=== PATIENT | male | born 1945 | race African-American/Black ===

== ENCOUNTER 2017-11-08 23:25 | Inpatient (IN) | payer MEDICARE ==
[2017-11-08 23:52] VITALS: BP 130/75
[2017-11-09] MEDS ORDERED: CEPHALEXIN PO SCH (04:00)
[2017-11-09] MEDS ORDERED: Non-Formulary Item 1 EA (Carvedilol [Carvedilol] 25 MG) PO SCH (09:00)
[2017-11-09] MEDS ORDERED: CLONIDINE HCL PO SCH (09:00)
--- NOTE | 2017-11-11 01:19 | Psychosocial Evaluation ---
DATE OF SERVICE: 11/08/2017 PSYCHIATRIC INITIAL EVALUATION AND MENTAL STATUS EXAM PATIENT'S AGE: 72-year-old. SEX: Male. PHYSICIAN: Dr. Callahan. CHIEF COMPLAINT: Agitation and irritable mood. HISTORY OF PRESENT ILLNESS: The patient is a 72-year-old who was transferred from [facility] because of aggressive behavior and threatening officers and staff. The patient has been aggressive towards staff in the facility where he lives and also in the Emergency Room was threatening staff and threated officers and was not able to follow any directions. The patient also has been resisting care. The patient also in the Emergency Room was uncooperative and refuses to sign papers or to cooperate with staff or to give them any information. The patient has history of bipolar disorder and has been easily agitated and in irritable and angry mood. The patient was placed on a 5150 hold in the Emergency Room for grave disability since he has not been able to give any information and has not been able to provide any safe plan for self-care. PAST PSYCHIATRIC HISTORY: The patient has history of what seems to be bipolar disorder. PAST MEDICAL HISTORY: The patient has history of hypertension. SOCIAL HISTORY: The patient lives in a alf. The patient denies any alcohol or street drug use. ALLERGIES: LITHIUM. MENTAL STATUS EXAMINATION: The patient appears older than stated age. Irritable mood. Agitated. Anxious. Irritable and angry mood. Uncooperative. Thought processes are with poverty of speech. The patient did not answer questions regarding hallucinations or delusions or regarding suicide or homicide but he is agitated and aggressive. The patient denies any intention to harm himself or others, but he is aggressive and threatening others. The patient is alert and unable to assess memory or orientation at this time because the patient is uncooperative. Poor insight and poor judgment. ASSESSMENT: PRIMARY DIAGNOSIS: Bipolar disorder, manic episode, with psychotic features. TREATMENT PLAN: Continue to monitor his behavior and his condition closely. Also, we will start the patient on Seroquel who will adjust the dose. ESTIMATED LENGTH OF STAY: 5-7 days. THE PATIENT'S STRENGTHS AND WEAKNESSES: The patient's strength is not clear at this time. Weaknesses are his poor judgment and his anger and threatening the staff and uncooperative. AFTER DISCHARGE PLAN: The patient will return to his placement and outpatient treatment and followup will continue as an outpatient. CRITERIA FOR DISCHARGE: The patient will not be agitated or psychotic and have better impulse control and we will stabilize psychotropic medications and establish outpatient treatment plans. [facility]# [id number]
--- NOTE | 2017-11-11 02:07 | Progress Notes ---
DATE: SUBJECTIVE: Chart reviewed and the patient interviewed. Also discussed the patient's condition with the staff and reviewed records and labs. The patient is still confused and he is still in angry and in irritable mood. The patient also is still having disorganized thoughts and he is unable to carry on any coherent conversation. The patient also is still restless and he is still easily agitated. Also, still have disorganized thoughts and unable to carry on any coherent conversation. The patient also has foul odor and refused to take shower and is in angry mood. Also, difficulty following directions. ASSESSMENT: The patient is confused and is agitated. TREATMENT PLAN: Continue to monitor his behavior and his condition closely. Also, we will start the patient on Seroquel 25 mg twice a day and we will adjust the dose and follow up with discharge plans and with behavioral modifications. JOB# [id number]
--- NOTE | 2017-11-11 10:04 | Progress Notes ---
DATE: 11/11/2017 SUBJECTIVE: Chart reviewed and the patient interviewed. Also discussed the patient's condition with the staff and reviewed the records and labs. The patient continued to be extremely delusional and angry and is still extremely suspicious and paranoid. The patient also is still easily agitated. The patient also is disheveled and personal hygiene is poor. He also is angry and he needs lots of redirections, was difficult to redirect him. On the other hand, the patient started to take his medications. The patient has still poor hygiene and he is still unable to cooperate with the staff in regard to his hygiene. ASSESSMENT: The patient is still psychotic and is still agitated. TREATMENT PLAN: Continue to monitor his behavior and his condition closely. Also, continue to work on his irritable mood and poor hygiene. Also, continue to adjust psychotropic medications and follow up closely. JOB# [id number]
--- NOTE | 2017-11-11 15:31 | History & Physical ---
ADMIT DATE: 11/09/2017 ADMITTING PHYSICIAN: Dr. Callahan. REASON FOR ADMISSION: Psychiatric disorder. HISTORY OF PRESENT ILLNESS: This 72-year-old male with history of hypertension admitted to [facility] for underlying psychiatric illness by Dr. Callahna. Dr. Callahan requested a medical H and P on this patient. During my evaluation, the patient seems very agitated and very confused, unable to communicate well. Most of the history obtained through available medical record. PAST MEDICAL HISTORY: Hypertension per record. PAST SURGICAL HISTORY: None reported. SOCIAL HISTORY: Lives at nursing facility. Negative for alcohol, tobacco, or street drug use. CURRENT MEDICATIONS: Per medical reconciliation reviewed. ALLERGIES: Allergic to LITHIUM. REVIEW OF SYSTEMS: Difficult to obtain due to the patient's underlying confusions. PHYSICAL EXAMINATION: VITAL SIGNS: Temperature 97.8, pulse 71, respiration 19, blood pressure 157/71. HEENT: Unremarkable. HEART: S1, S2 normal. LUNGS: Clear to auscultation. ABDOMEN: Soft, nontender, no guarding or rigidity. NEUROLOGIC: The patient is awake, but confused, grossly nonfocal. EXTREMITIES: Mild edema noted. LABORATORY DATA: No lab data is available. ASSESSMENT: 1. Hypertension. 2. Confusion. 3. Psych disorder. 4. Dementia. PLAN: The patient will be continued on Coreg and Norvasc. Monitor blood pressures. Continue Aricept. Psych management per psychiatrist. Fall precaution, aspiration precaution will be given. The patient is medically stable to proceed to [facility]. Thank you Dr. Callahan for allowing us to participate in the care of this patient. [facility]# [id number]
--- NOTE | 2017-11-13 22:43 | Progress Notes ---
DATE: 11/12/2017 DATE OF SERVICE: 11/12/2017. SUBJECTIVE: Chart reviewed and the patient interviewed. Also discussed the patient's condition with the staff and reviewed records and labs. The patient slept slightly better yesterday since he did take his medications. The patient also did take a shower. He is still wearing his dirty clothes, still foul odor and poor hygiene. The patient also is still easily agitated and easily irritable. Also, focused on smoking. The patient also had difficulty following the staff directions and he still gets agitated and resisting care when staff tried to redirect him. Otherwise, the patient started to comply with taking his medications and seems to be slightly easier to redirect him. ASSESSMENT: The patient seems to be slightly less agitated and less irritable. TREATMENT PLAN: Continue to monitor his behavior and his condition closely. Also, continue to work on his poor impulse control and his agitation and his irritability and continue to follow up closely. JOB# [id number]
--- NOTE | 2017-11-14 00:37 | Progress Notes ---
DATE: 11/13/2017 SUBJECTIVE: A 72-year-old male currently in the hospital, aggressive behaviors, threatening officers and staff, aggressive towards staff. Dr. Callahan seeing the patient over the past few days, noted that he is delusional, angry, suspicious, paranoid, very poor personal hygiene. Staff noting he remains impulsive, unpredictable, slept fairly well. Poorly oriented at times. Noted to be anxious, depressed. Medications were noted including dosages and frequencies. He is refusing ADLs, refusing to shower for example unclear as to why. ASSESSMENT: The patient remains symptomatic, impulsive, unpredictable, not safe for a lower level of care, ongoing psychotic symptoms. PLAN: We will continue to monitor, adjust and . JOB# [id number]
--- NOTE | 2017-11-14 17:23 | Progress Notes ---
DATE: 11/14/2017 SUBJECTIVE: I met with the patient in the hospital, aggressive behaviors, had been threatening officers, threatening staff. The patient noted to be angry, suspicious. On [id number], the patient, angry, does not want to talk to me. The patient seems to be fully oriented, anxious, internally preoccupied, highly impulsive, unpredictable, noted to be mostly withdrawn. Staff noting he remains suspicious, depressed, does not really know why he is here. Does not know what is going on for example, does not know the year, the month. Medications were noted including doses and frequencies. ASSESSMENT: The patient remains symptomatic, at times focused on smoking, confused, disoriented, impulsive, unpredictable, noted history of dementia, currently on Depakote, Seroquel. We will continue to monitor. Given his ongoing symptoms, he remains an acute safety risk. JOB# [id number]
--- NOTE | 2017-11-15 17:27 | General Progress Note ---
Subjective - Review of Systems Service Date: 11/15/17 Subjective: Patient seen and examined nursing staff reported that patient has been refusing his BP meds Objective - Physical Exam Vitals and I&O: Vital Signs Temp 97.8 F 11/08/17 23:50 Pulse 76 11/14/17 17:10 Resp 19 11/08/17 23:50 BP 126/78 11/14/17 17:10 Pulse Ox 97 11/08/17 23:50 Intake & Output 11/14/17 11/15/17 11/15/17 18:59 06:59 18:59 Intake Total 1200 300 Balance 1200 300 Intake: Oral 1200 300 Other: # Voids 3 1 # Bowel Movements 1 0 Active Medications: Current Medications Amlodipine Besylate (Norvasc) 10 mg PO DAILY [facility] Stop: 01/12/18 08:59 Last Admin: 11/15/17 08:09 Dose: Not Given Carvedilol (Coreg) 25 mg PO BID [facility] Stop: 01/08/18 08:59 Last Admin: 11/15/17 08:09 Dose: Not Given Divalproex Sodium (Depakote Dr) 125 mg PO BID [facility]; Protocol Stop: 01/08/18 08:59 Last Admin: 11/15/17 10:05 Dose: 125 mg Docusate Sodium (Colace) 100 mg PO BID [facility] Stop: 01/08/18 08:59 Last Admin: 11/15/17 10:05 Dose: 100 mg Donepezil HCl (Aricept) 10 mg PO HS [facility] Stop: 01/08/18 20:59 Last Admin: 11/14/17 21:23 Dose: 10 mg Lorazepam (Ativan) 0.5 mg PO Q4HR PRN; Protocol PRN Reason: Anxiety Stop: 12/09/17 01:47 Last Admin: 11/12/17 09:51 Dose: 0.5 mg Quetiapine Fumarate (Seroquel) 50 mg PO BID [facility]; Protocol Stop: 01/11/18 12:44 Last Admin: 11/15/17 10:04 Dose: 50 mg Thiamine HCl (Vitamin B1) 100 mg PO DAILY [facility] Stop: 01/08/18 08:59 Last Admin: 11/15/17 10:05 Dose: 100 mg Trazodone HCl (Desyrel) 50 mg PO HS PRN; Protocol PRN Reason: Insomnia Stop: 01/08/18 03:58 Triamterene/HCTZ (Dyazide) 1 cap PO DAILY [place] Stop: 01/08/18 08:59 Last Admin: 11/15/17 10:04 Dose: 1 cap Zolpidem Tartrate (Ambien) 5 mg PO HS PRN PRN Reason: Insomnia Stop: 01/08/18 01:47 Last Admin: 11/14/17 21:23 Dose: 5 mg Cardiovascular: Regular rate Lungs: Clear to auscultation Assessment/Plan - Assessment Assessment: HTN Non compliance Mental health disorder - Plan Plan: Monitor BP Medication compliance advised Psych management per psychiatrist Nutritional Asmnt/Malnutr-PDOC - Dietary Evaluation Malnutrition Findings (Please click <Entered> for more info): Nutritional Asmnt/Malnutrition Start: 11/11/17 17: 21 Text: Status: Complete Freq: Protocol: Document 11/11/17 17:21 LCMILLIEG (Rec: 11/11/17 17:24 [id number]) Nutritional Asmnt/Malnutrition Patient General Information Nutritional Screening Moderate Risk Diagnosis psychosis Pertinent Medical Hx/Surgical Hx HTN Subjective Information Per EMR, PO intake 100% on regular diet. Current Diet Order/ Nutrition Support regular Pertinent Medications colace, seroquel, vit B1 Pertinent Labs no labs Nutritional Hx/Data Height 1.73 m Height (Calculated Centimeters) 172.7 Current Weight (lbs) 72.575 kg Weight (Calculated Kilograms) 72.6 Weight (Calculated Grams) 44558.8 [place] Body Weight 154 Body Mass Index (BMI) 24.3 Weight Status Approriate GI Symptoms GI Symptoms None Last BM none Difficult in: None Skin Integrity/Comment: david 16 Current %PO Good (75-100%) Estimated Nutritional Goals BEE in Kcals: Using Current wt Calories/Kcals/Kg 25-30 Kcals Calculated 7836-9496 Protein: Using Current wt Protein g/k Protein Calculated 73 Fluid: ml 1825-2190ml (1ml/kcal) Nutritional Problem No current Nutrition Prob Problem N/A Malnutrition Alert Is there a minimum of two criteria No selected? Query Text:Check all the applicable criteria. A minimum of two criteria are recommended for diagnosis of either severe or non-severe malnutrition. Malnutrition Related to Morbid Obesity Malnutrition related to morbid obesity No Intervention/Recommendation Comments 1. Continue with regular diet as ordered. 2. Monitor PO intake, wt, labs and skin integrity 3. F/U as low risk in 7 days, 11/18 Expected Outcomes/Goals Expected Outcomes/Goals 1. PO intake to meet at least 75% of nutritional needs. 2. Wt stability, skin to remain intact, labs to approach WNL.
--- NOTE | 2017-11-15 21:52 | Progress Notes ---
DATE: 11/15/[address] Callahan. Case was discussed with staff of the patient, reviewed records. This is a 72-year-old male who was admitted on 11/08/2017 because of irritability and agitation from [facility] because of aggressive behavior, threatening officers and staff, aggressive towards staff, unable to participate in meaningful conversation or make safe plan for his self-care. He was put on a hold for gait disability, unable to give any information with a history, which seem to be like bipolar disorder. The patient continues to be unable to give information. Continues to be confused. He is on Aricept 10 mg at bedtime, Seroquel 50 mg twice a day, and ____ 100 mg daily. Continues to be unpredictable, impulsive, and needing redirection. Continues to have poor insight. Continues to be at risk for discharge because of his behavior and we will continue with the patient in group therapy, milieu therapy, and adjust the medications as needed. [facility]# [id number]
--- NOTE | 2017-11-16 22:28 | Progress Notes ---
DATE: 11/16/[address] Callahan. Case was discussed with staff of the patient, reviewed records. The patient continues to be irritable, continues to have poor insight, continues to be unable to make safe plan for self-care, confused, unpredictable, impulsive, needing redirection. Continues to be not ready to go to a lesser level of care because of his agitative behavior, confusion. No side effects to the medication. No sedation, no nausea, no extrapyramidal symptoms. We will continue the patient in group therapy, milieu therapy, and adjust the medications as needed. JOB# [id number]
--- NOTE | 2017-11-18 17:32 | Progress Notes ---
DATE: 11/17/2017 SUBJECTIVE: Chart reviewed and the patient interviewed. Also discussed the patient's condition with the staff and reviewed records and labs. The patient continued to be actively hallucinating and actively psychotic. He is going around, talking to himself. The patient also is still restless and he is still poor self-care. Also, he is at times uncooperative and refuses to get his vital signs taken earlier. Also, he seems to be in a depressed mood and also confused. Otherwise, the patient is compliant with taking his medications with no side effects of medications. ASSESSMENT: The patient is still psychotic and agitated. TREATMENT PLAN: Continue to monitor his behavior and his condition closely. Also, continue adjusting psychotropic medication and follow up closely. [facility]# [id number]
--- NOTE | 2017-11-19 01:25 | Progress Notes ---
DATE: 11/18/2017 SUBJECTIVE: Chart reviewed and the patient interviewed. Also, discussed the patient's condition with the staff and reviewed records and labs. The patient is still paranoid and is still anxious. The patient also is suspicious. He also is easily agitated and in irritable and angry mood. Otherwise, the patient is compliant with taking his medications with no side effects of medications. ASSESSMENT: The patient is still psychotic. TREATMENT PLAN: Continue monitoring his behavior and his condition closely. Also, continue adjusting psychotropic medications and followup. [facility]# [id number]
--- NOTE | 2017-11-20 11:28 | Progress Notes ---
DATE: SUBJECTIVE: Chart reviewed and the patient interviewed. Also discussed the patient's condition with the staff and reviewed records and labs. The patient still seems to be preoccupied and still paranoid. The patient also is still easily agitated. Also, is still restless and is still at times needs lots of redirections. The patient on the other hand is compliant with taking medications with no side effects of medications. ASSESSMENT: The patient is still paranoid and seems to be depressed. TREATMENT PLAN: Continue to monitor his behavior and his condition closely. Also, continue adjusting psychotropic medications and followup. JOB# [id number]
--- NOTE | 2017-11-20 20:06 | Progress Notes ---
DATE: 11/20/2017 PSYCHIATRIC PROGRESS NOTE Chart reviewed and the patient interviewed. Also discussed the patient's condition with the staff and reviewed records and labs. The patient is still mumbling and is still easily agitated. The patient also seems to be preoccupied. Also, is wandering around the unit and suspicious and paranoid and aggressive to others. Also, his thought processes are disorganized. He also needs lots of redirections. Otherwise, the patient is compliant with taking his medications with no side effects of medications. ASSESSMENT: The patient is still agitated and psychotic. TREATMENT PLAN: Continue to monitor his behavior and his condition closely. Also, continue adjusting psychotropic medications and work on behavioral modification. JOB# [id number]
--- NOTE | 2017-11-22 02:11 | Progress Notes ---
DATE: SUBJECTIVE: Chart reviewed and the patient interviewed. Also discussed the patient's condition with the staff and reviewed records and labs. The patient is still actively hallucinating and is preoccupied and talking to self. The patient also mumbles. He also is still paranoid. The patient also is still restless and disorganized thoughts. Otherwise, the patient is compliant with taking medications with no side effects of medications. ASSESSMENT: The patient is still agitated and is still psychotic and need close monitoring. TREATMENT PLAN: Continue to monitor his behavior and continue adjusting psychotropic medication and work on behavioral modification. JOB# [id number]
--- NOTE | 2017-11-22 16:16 | General Progress Note ---
Subjective - Review of Systems Service Date: 11/22/17 Subjective: Patient seen and examined doing better per nursing staff patient does take his meds now Objective - Physical Exam Vitals and I&O: Vital Signs Temp 0 F 11/22/17 06:52 Pulse 72 11/22/17 09:54 Resp 18 11/21/17 16:43 BP 147/82 11/22/17 09:54 Pulse Ox 99 11/21/17 16:43 Intake & Output 11/21/17 11/22/17 11/22/17 18:59 06:59 18:59 Intake Total 1200 180 Balance 1200 180 Intake: Oral 1200 180 Other: # Voids 3 2 # Bowel Movements 0 Active Medications: Current Medications Amlodipine Besylate (Norvasc) 10 mg PO DAILY [facility] Stop: 01/12/18 08:59 Last Admin: 11/22/17 08:54 Dose: 10 mg Carvedilol (Coreg) 25 mg PO BID [facility] Stop: 01/08/18 08:59 Last Admin: 11/22/17 08:55 Dose: 25 mg Divalproex Sodium (Depakote Dr) 125 mg PO BID [facility]; Protocol Stop: 01/08/18 08:59 Last Admin: 11/22/17 08:54 Dose: 125 mg Docusate Sodium (Colace) 100 mg PO BID [facility] Stop: 01/08/18 08:59 Last Admin: 11/22/17 08:55 Dose: 100 mg Donepezil HCl (Aricept) 10 mg PO HS [facility] Stop: 01/08/18 20:59 Last Admin: 11/21/17 21:02 Dose: 10 mg Lorazepam (Ativan) 0.5 mg PO Q4HR PRN; Protocol PRN Reason: Anxiety Stop: 12/09/17 01:47 Last Admin: 11/12/17 09:51 Dose: 0.5 mg Quetiapine Fumarate (Seroquel) 50 mg PO BID [facility]; Protocol Stop: 01/11/18 12:44 Last Admin: 11/22/17 08:55 Dose: 50 mg Thiamine HCl (Vitamin B1) 100 mg PO DAILY [facility] Stop: 01/08/18 08:59 Last Admin: 11/22/17 08:55 Dose: 100 mg Trazodone HCl (Desyrel) 50 mg PO HS PRN; Protocol PRN Reason: Insomnia Stop: 01/08/18 03:58 Triamterene/HCTZ (Dyazide) 1 cap PO DAILY [place] Stop: 01/08/18 08:59 Last Admin: 11/22/17 08:55 Dose: 1 cap Zolpidem Tartrate (Ambien) 5 mg PO HS PRN PRN Reason: Insomnia Stop: 01/08/18 01:47 Last Admin: 11/20/17 21:31 Dose: 5 mg Cardiovascular: Regular rate Lungs: Clear to auscultation Assessment/Plan - Assessment Assessment: HTN Mental health disorder - Plan Plan: Monitor BP Continue current BP meds Psych management per psychiatrist Nutritional Asmnt/Malnutr-PDOC - Dietary Evaluation Malnutrition Findings (Please click <Entered> for more info): Nutritional Asmnt/Malnutrition Start: 11/11/17 17: 21 Text: Status: Complete Freq: Protocol: Document 11/11/17 17:21 LCHENG (Rec: 11/11/17 17:24 LCHENG [id number]) Nutritional Asmnt/Malnutrition Patient General Information Nutritional Screening Moderate Risk Diagnosis psychosis Pertinent Medical Hx/Surgical Hx HTN Subjective Information Per EMR, PO intake 100% on regular diet. Current Diet Order/ Nutrition Support regular Pertinent Medications colace, seroquel, vit B1 Pertinent Labs no labs Nutritional Hx/Data Height 1.73 m Height (Calculated Centimeters) 172.7 Current Weight (lbs) 72.575 kg Weight (Calculated Kilograms) 72.6 Weight (Calculated Grams) 79748.8 [place] Body Weight 154 Body Mass Index (BMI) 24.3 Weight Status Approriate GI Symptoms GI Symptoms None Last BM none Difficult in: None Skin Integrity/Comment: david Gomez Current %PO Good (75-100%) Estimated Nutritional Goals BEE in Kcals: Using Current wt Calories/Kcals/Kg 25-30 Kcals Calculated 1397-9829 Protein: Using Current wt Protein g/k Protein Calculated 73 Fluid: ml 1825-2190ml (1ml/kcal) Nutritional Problem No current Nutrition Prob Problem N/A Malnutrition Alert Is there a minimum of two criteria No selected? Query Text:Check all the applicable criteria. A minimum of two criteria are recommended for diagnosis of either severe or non-severe malnutrition. Malnutrition Related to Morbid Obesity Malnutrition related to morbid obesity No Intervention/Recommendation Comments 1. Continue with regular diet as ordered. 2. Monitor PO intake, wt, labs and skin integrity 3. F/U as low risk in 7 days, 11/18 Expected Outcomes/Goals Expected Outcomes/Goals 1. PO intake to meet at least 75% of nutritional needs. 2. Wt stability, skin to remain intact, labs to approach WNL.
--- NOTE | 2017-11-22 23:22 | Progress Notes ---
DATE: SUBJECTIVE: Chart reviewed and the patient interviewed. Also discussed the patient's condition with the staff and reviewed records and labs. The patient still wanders around the unit and still feels preoccupied. Also, is still suspicious and is still paranoid. Also, interacting minimally with others. Otherwise, the patient is compliant with taking his medications with no side effects of medications. ASSESSMENT: The patient still needs close monitoring. TREATMENT PLAN: Continue monitoring his behavior and his condition closely. Also, continue working on his impulse control and continue to follow up. JOB# [id number]
--- NOTE | 2017-11-23 19:43 | Discharge Summary ---
DATE OF DISCHARGE: 11/23/2017 DATE OF ADMISSION: 11/08/2017 DATE OF DISCHARGE: 11/23/2017 AGE: 72 years. SEX: Male. PHYSICIAN: Dr. Callahan. FINAL DIAGNOSIS AND PRIMARY DIAGNOSIS: Bipolar disorder, manic episode, severe, with psychotic features. REASON FOR HOSPITALIZATION: The patient was admitted to the hospital because of increased agitation and aggressive behavior and the patient was threatening staff and officers in the [facility] where he was living and so transferred to the hospital. HOSPITAL COURSE: The patient continued to be agitated and aggressive. The patient also was confused. The patient also was restless and pacing up and down the unit. The patient also started on Seroquel in a dose of 50 mg twice a day and also is getting trazodone at bedtime on a p.r.n. basis. Also, continued to take Aricept 10 mg every day. He continued to have episodes of irritability and agitation. Depakote was given in a dose of 125 mg twice a day. Gradually, the patient's affect was brighter. The patient was less irritable and less agitated. He also was compliant with taking his medications with no side effects of medications. [facility] accepted the patient to go there and the patient was discharged there. PHYSICAL EXAMINATION: Was basically with no major medical problems. AFTER DISCHARGE PLANS: The patient discharged from the hospital and went to [facility] with plans for followup there. EXPECTED OUTCOME AFTER DISCHARGE: Fair if the patient continued to comply with taking his medication. JOB# [id number]
== END 2017-11-23 16:35 | DRG 885 ==
LOC: GERO 23:25
PROVIDERS: ADMIT Psychiatry & Neurology Psychiatry; ATTEND Psychiatry & Neurology Psychiatry
DX: F31.2 Bipolar disorder, current episode manic severe with psychotic features (principal); I10 Essential (primary) hypertension; R41.0 Disorientation, unspecified; F03.90 Unspecified dementia, unspecified severity, without behavioral disturbance, psychotic disturbance, mood disturbance, and anxiety; Z88.8 Allergy status to other drugs, medicaments and biological substances
CPT/HCPCS: 90899; G0410; Z7610